=== PATIENT | female | born 1985 | race Two or more races ===

== ENCOUNTER 2022-02-28 19:29 | Emergency (ER) | payer OTHER ==
[~2022-02-28] VITALS: Ht 170.2 cm; Wt 99.8 kg
[2022-02-28 19:39] VITALS: BP 130/80
--- NOTE | 2022-02-28 19:43 | NUR ---
PATIENT [id number] FROM HOME FOR ETOH, "WITNESSED TRIP AND FALL INTO POOL. SUBMERGED FOR 5 SECONDS" NO HEAD TRUAMA +VOMITTING. PATIENT ALERT AND ORIENTED X3. BROUGHT IN BY STRETCHER IN BED 13 AWAITING MD CHANG.
--- NOTE | 2022-02-28 20:29 | NUR ---
FAMILY MITCHEL: [phone]
--- NOTE | 2022-02-28 21:11 | NUR ---
Patient discharged to home in stable condition. Written and verbal after care instructions given. Patient verbalizes understanding of instruction. Family picked up pt.
== END 2022-02-28 21:19 | disposition home or self-care (01) ==
LOC: ER 19:38
DX: F10.129 Alcohol abuse with intoxication, unspecified (principal); R41.82 Altered mental status, unspecified; Y90.9 Presence of alcohol in blood, level not specified